=== PATIENT | male | born 1995 | race Caucasian/White ===

== ENCOUNTER 2020-03-10 21:30 | Emergency (ER) | payer MEDICAID ==
[~2020-03-10] VITALS: Ht 162.6 cm; Wt 93.9 kg
[2020-03-10 21:35] VITALS: BP_SYST 118
--- NOTE | 2020-03-10 21:35 | NUR ---
Pt ambulatory to bed 8 for evaluation, changed to hospital gown, hooked to cont monitor. side rails x 2
--- NOTE | 2020-03-10 21:50 | NUR ---
ROSEMARY TO ASSUME CARE. RECEIVED AND IN ROOM
--- NOTE | 2020-03-10 21:54 | NUR ---
DR CUNNINGHAM IN TO ASSESS
--- NOTE | 2020-03-10 22:15 | NUR ---
HERE FROM HOME C/O SOB WITH FATIGUE. DX LYMPHOMA 14 MONTHS AGE. LAST FEW WEEKS FATIGUE, DIZZINESS. UPON ARRIVAL HE WAS AMBULATORY. BIB HIS AUNT. CALM, ALERT, RESP UNLABORED, SKIN WARM AND DRY. PULSES PALPABLE BILATERALLY, PORTACATH RT UPPER CHEST. SWELLING LT UPPER CHEST WITH TENDERNESS
--- NOTE | 2020-03-10 23:07 | NUR ---
SBAR REPORT TO RN TO ASSUME CARE
[2020-03-10 23:19] LABS: BILIRUBIN,URINE NEGATIVE (NEGATIVE); BLOOD, URINE NEGATIVE (NEGATIVE); CLARITY/URINE CLEAR (CLEAR); COLOR,URINE YELLOW (YELLOW); GLUCOSE,URINE NEGATIVE (NEGATIVE); KETONES,URINE NEGATIVE (NEGATIVE); LEUKOCYTE ESTERASE ,URINE NEGATIVE (NEGATIVE); NITRITE, URINE NEGATIVE (NEGATIVE); PH,URINE 6.5 (5.0-8.0); PROTEIN URINE NEGATIVE (NEGATIVE); UROBILINOGEN,URINE 0.2 (0.2-1.0)
[2020-03-10 23:37] LABS: BARBITURATE, URINE NEGATIVE (NEG <=200); BENZODIAZEPINE, URINE POSITIVE (NEG <=150); CANNABINOID, URINE NEGATIVE (NEG <=50); COCAINE, URINE NEGATIVE (NEG <=150); METHAMPHETAMINES SCREEN,URINE NEGATIVE (NEG <=500); OPIATE, URINE NEGATIVE (NEG <=100); PHENCYCLIDINE SCREEN,URINE NEGATIVE (NEG <=25); UR TRICYCLIC ANTIDEPRESSANTS NEGATIVE (NEG <=300); URINE AMPHETAMINE NEGATIVE (NEG <=500); URINE METHADONE NEGATIVE (NEG <=200); URINE OXYCODONE SCREEN NEGATIVE (NEG <=100); URINE PROPOXYPHENE SCREEN NEGATIVE (NEG <=300)
[2020-03-10 23:40] LABS: BASOPHILS # (AUTO) 0.1 K/uL (0.0-0.2); BASOPHILS % (AUTO) 0.5 % (0.0-2.0); EOSINOPHILS # (AUTO) 0.3 K/uL (0.0-0.4); EOSINOPHILS % (AUTO) 2.1 % (0.0-4.0); HEMATOCRIT 29.4 % (36-54); HEMOGLOBIN 9.6 g/dL (14.0-18.0); MEAN CORPUSCULAR HEMOGLOBIN 23 pg (27-31); MEAN CORPUSCULAR HGB CONC 33 % (32-36); MEAN CORPUSCULAR VOLUME 69 fL (79.0-98.0); MONOCYTES % (AUTO) 6.2 % (1.7-9.3); NEUTROPHILS # (AUTO) 13.7 K/uL (1.8-7.7); NEUTROPHILS % (AUTO) 85.2 % (40.0-70.0); PLATELET COUNT (AUTO) 420 K/uL (130-430); RED BLOOD CELL COUNT(AUTO) 4.25 MIL/uL (4.2-6.2); RED CELL DISTRIBUTION WIDTH 17.5 % (9.0-15.0); WHITE BLOOD COUNT (AUTO) 16.1 K/uL (4.8-10.8)
[2020-03-10 23:49] LABS: CALCIUM 8.4 mg/dL (8.4-11.0); CREATININE 0.95 mg/dL (0.55-1.30); POTASSIUM 3.3 mmol/L (3.5-5.1)
[2020-03-11 00:03] LABS: ALBUMIN 2.8 g/dL (3.4-4.8); FREE T4 (FREE THYROXINE) 1.2 ng/dl (0.8-1.5); THYROID STIMULATING HORMONE 1.31 uIu/mL (0.36-3.74); TOTAL BILIRUBIN 0.4 mg/dL (0.0-1.0)
[2020-03-11] MEDS ORDERED: NACL 0.9% 1,000 ML IV ONE (00:30)
--- NOTE | 2020-03-11 00:30 | NUR ---
COVID and INFLUENZA swab collected and sent to lab.
--- NOTE | 2020-03-11 00:37 | NUR ---
Patient resting in bed comfortably. IV FLUIDS NS BOLUS administered. No signs of infiltration of IV site, flushed with 10cc of normal saline. patient denies any pain. vital signs stable.
--- NOTE | 2020-03-11 00:43 | NUR ---
CT CHEST ANGIO CONSENT FORM SIGNED.
--- NOTE | 2020-03-11 01:13 | NUR ---
# 20 gauge angiocath placed to RFA. Use of asceptic technique. Opsite placed over site. Blood return noted. Flushed with 10 cc of normal saline. No evidence of infiltration noted. Patient tolerated well.
--- NOTE | 2020-03-11 01:19 | NUR ---
Patient transported to radiology via gurney, accompanied by tawnay.
--- NOTE | 2020-03-11 01:19 | NUR ---
Enmanuel rhodes in [facility] - 03/11/20 at 0119 by JERRY ra
[2020-03-11] MEDS ORDERED: IOHEXOL 350 mgI/mL, 150 ML INFUS..BTL IV ONE (01:38)
--- NOTE | 2020-03-11 01:55 | NUR ---
Patient returned from CT, placed on monitor. IV Fluids NS running @ 999mls/hr per order. Vital signs stable
--- NOTE | 2020-03-11 02:33 | NUR ---
Patient using bedside urinal. IV Fluids NS have finished. Vital signs stable. Pt voices no complaints.
[2020-03-11 03:24] VITALS: BP_SYST 126
--- NOTE | 2020-03-11 03:24 | NUR ---
Patient given written and verbal discharge instructions and verbalizes understanding. ER MD discussed with patient the results and treatment provided. Patient in stable condition. ID arm band removed. Both IV catheter removed intact and dressing applied, no active bleeding. No Rx given. Patient educated on pain management and to follow up with PMD. Pain Scale 0/10. Opportunity for questions provided and answered. Medication side effect fact sheet provided.
== END 2020-03-11 03:24 | disposition home or self-care (01) ==
LOC: SED 21:30
DX: R53.1 Weakness (principal); E87.6 Hypokalemia; D64.9 Anemia, unspecified; D72.829 Elevated white blood cell count, unspecified; R79.1 Abnormal coagulation profile; M89.9 Disorder of bone, unspecified; Z20.828 Contact with and (suspected) exposure to other viral communicable diseases
CPT/HCPCS: 36415; 71045; 71275; 80053; 80307; 81003; 84439; 84443; 85025; 85379; 86710; 93005; 99285; C9803; J7030; Q9967; U0003